=== PATIENT | female | born 1965 | race African-American/Black ===

== ENCOUNTER 2020-02-29 08:31 | Emergency (ER) | payer BC ==
[~2020-02-29] VITALS: Ht 160 cm; Wt 70.3 kg
--- NOTE | 2020-02-29 08:51 | NUR ---
ED Nurse Note: Pt has glaucoma and has had increasing L eye pain 6/10 and L forehead pain for past 3 days. Pt is alert and ox4, ambulatory. Pt states she has stuffy nose and postnasal drip.
[2020-02-29 08:53] VITALS: BP 127/78
[2020-02-29] MEDS ORDERED: Tetracaine 0.5% Opth 4ml Soln BOTH EYES ONE (09:00)
--- NOTE | 2020-02-29 09:13 | Emergency Room Report ---
History of Present Illness General Chief Complaint: Eye Problems Source: Patient Present Illness HPI Patient presents with history of glaucoma and and now with a headache that has been intermittent. The BRUSH is on the left side of her head. She is also has sinus drainage. She started a new medication for her glaucoma a month ago that she believes may have been related to the headaches. She takes Alphagan and Xalatan. She is seeing an security operations center analyst and recently received his Pneumovax. She denies fevers but feels shaky and may have had some chills. The headaches are sharp in the restorationism area and do not radiate. She rates the pain in her head 4/ 10. She is used Claritin but it seems ineffective. She has postnasal drip that also causes discomfort in her throat and chest. She also complains about muscle stiffness in her shoulders. She complains about palpitations. These are intermittent. She denies exertional chest pain. She does have some tenderness and a bump in her sternomanubrial notch. The patient has thyroid disease. She says that her thyroid is slightly low. She takes levothyroxine. Patient also has atenolol and Ativan. She has a history of hypertension and also takes amlodipine. She states her mother has a history of a cerebral mass and is concerned about this. She denies having a CT scan of her head in the past. No vomiting, diarrhea, dysuria, abdominal pain, shortness of breath, joint pain , rashes, dizziness. Allergies: Coded Allergies: No Known Allergies (Unverified , 02/29/20) COVID-19 Screening Contact w/high risk pt: No Experienced COVID-19 symptoms?: No COVID-19 Testing performed FRAME REPAIRER: Yes COVID-19 Screening: Negative COVID-19 COVID-19 Testing Source: 2 months ago Patient History Social History: Denies: smoking, alcohol use, drug use Social History Narrative From home Reviewed Nursing Documentation: PMH: Agreed; PSxH: Agreed Review of Systems All Other Systems: negative except mentioned in HPI Physical Exam Vital Signs Date Time Temp Pulse Resp B/P (MAP) Pulse Ox O2 Delivery O2 Flow Rate FiO2 02/29/20 08:39 98.8 79 16 124/71 (88) 98 Room Air Sp02 EP Interpretation: reviewed, normal General Appearance: well appearing, no apparent distress, GCS 15 Head: normocephalic Eyes: bilateral eye normal inspection, bilateral eye PERRL, bilateral eye EOMI , bilateral eye other - Intraocular pressure right 13, left 17 ENT: hearing grossly normal, EOM grossly intact, normal pharynx, no angioedema , normal voice, uvula midline, moist mucus membranes, other - Left TM with slight amount of fluid right normal the fluid is clear. Neck: full range of motion, supple Respiratory: lungs clear, normal breath sounds, other Cardiovascular #1: regular rate, rhythm Cardiovascular #2: 2+ radial (R) Gastrointestinal: normal inspection, non tender, non-distended Musculoskeletal: back normal, normal range of motion, gait/station normal Neurologic: alert, motor strength/tone normal, avionics systems integration specialist III-XII nml as tested, DTRs symmetric, oriented x3, sensory intact, cerebellar normal, speech normal Psychiatric: anxious Skin: no rash, warm/dry Medical Decision Making Diagnostic Impression: Primary Impression: Head ache Qualified Codes: R51 - Headache Additional Impressions: Glaucoma Qualified Codes: H40.813 - Glaucoma with increased episcleral venous pressure , bilateral Allergies Qualified Codes: T78.40XA - Allergy, unspecified, initial encounter Anxiety ER Course Patient with a history of glaucoma that presents with left-sided headache and other somatic complaints. Differential includes elevated intraocular pressure, side effect of medications, tension headache, electrolyte imbalance, cardiac side effects of medications, abnormal thyroid function, anxiety amongst others. Complicated patient with multiple somatic complaints. Evaluation with EKG, CT the head and labs. Patient treated initially with Tylenol. She was initially reluctant to take Tylenol. No red flag symptoms or signs. CT ordered due to family history of cerebral mass. Intraocular pressure measured. EKG normal. Labs unremarkable aside from minimally minimally low free T3 with normal TSH. CT had normal. Patient still with headaches. Somewhat improved with Tylenol. Patient anxious about headache even in the face of negative findings. Discussed the need for patient follow-up with her security operations center analyst and eye doctor. Discussed treatment with chlorpheniramine. No medical emergency at this time. Patient stable for outpatient observation and treatment. After discharge patient call that pharmacies did not have chlorpheniramine. Recall again stating is [id number]. Recall again stating that it is contraindicated in glaucoma (this is only for narrow angle glaucoma which she does not have based on her medications that she is taking). She requested other medication. Discussed consideration for use of Nasonex. She initially was against this as she said steroids would affect her thyroid. She was reassured that this would not be the case with nasal spray. Advised to have pharmacist call us. Laboratory Tests Test 02/29/20 09:05 02/29/20 10:49 White Blood Count 3.9 K/UL (4.8-10.8) L Red Blood Count 5.19 M/UL (4.20-5.40) Hemoglobin 13.7 G/DL (12.0-16.0) Hematocrit 43.1 % (37.0-47.0) Mean Corpuscular Volume 83 FL (80-99) Mean Corpuscular Hemoglobin 26.4 PG (27.0-31.0) L Mean Corpuscular Hemoglobin Concent 31.8 G/DL (32.0-36.0) L Red Cell Distribution Width 12.4 % (11.6-14.8) Platelet Count 195 K/UL (150-450) Mean Platelet Volume 7.8 FL (6.5-10.1) Neutrophils (%) (Auto) 54.2 % (45.0-75.0) Lymphocytes (%) (Auto) 37.9 % (20.0-45.0) Monocytes (%) (Auto) 6.9 % (1.0-10.0) Eosinophils (%) (Auto) 0.2 % (0.0-3.0) Basophils (%) (Auto) 0.9 % (0.0-2.0) Prothrombin Time 10.2 SEC (9.30-11.50) Prothrombin Time INR 0.9 (0.9-1.1) Activated Partial Thromboplast Time 25 SEC (23-33) Sodium Level 142 MMOL/L (136-145) Potassium Level 4.0 MMOL/L (3.5-5.1) Chloride Level 105 MMOL/L (98-107) Carbon Dioxide Level 31 MMOL/L (21-32) Anion Gap 6 mmol/L (5-15) Blood Urea Nitrogen 7 mg/dL (7-18) Creatinine 1.1 MG/DL (0.55-1.30) Estimated Glomerular Filtration Rate > 60 mL/min (>60) Glucose Level 117 MG/DL (74-106) H Calcium Level 9.3 MG/DL (8.5-10.1) Magnesium Level 2.2 MG/DL (1.8-2.4) Total Bilirubin 0.2 MG/DL (0.2-1.0) Aspartate Amino Transferase (AST) 12 U/L (15-37) L Alanine Aminotransferase (ALT) 13 U/L (12-78) Alkaline Phosphatase 101 U/L (46-116) Total Creatine Kinase 97 U/L (26-308) Troponin I 0.000 ng/mL (0.000-0.056) C-Reactive Protein, Quantitative < 0.4 mg/dL (0.00-0.90) Pro-B-Type Natriuretic Peptide 38 pg/mL (0-125) Total Protein 8.1 G/DL (6.4-8.2) Albumin 3.9 G/DL (3.4-5.0) Globulin 4.2 g/dL Albumin/Globulin Ratio 0.9 (1.0-2.7) L Thyroid Stimulating Hormone (TSH) 0.705 uiU/mL (0.358-3.740) Free Thyroxine 0.99 NG/DL (0.76-1.46) Free Triiodothyronine 2.2 pg/mL (2.3-4.2) L Urine Color Pale yellow Urine Appearance Clear Urine pH 8 (4.5-8.0) Urine Specific [place] 1.015 (1.005-1.035) Urine Protein Negative (NEGATIVE) Urine Glucose (UA) Negative (NEGATIVE) Urine Ketones Negative (NEGATIVE) Urine Blood Negative (NEGATIVE) Urine Nitrite Negative (NEGATIVE) Urine Bilirubin Negative (NEGATIVE) Urine Urobilinogen Normal MG/DL (0.0-1.0) Urine Leukocyte Esterase Negative (NEGATIVE) Urine Opiates Screen Negative (NEGATIVE) Urine Barbiturates Screen Negative (NEGATIVE) Phencyclidine (PCP) Screen Negative (NEGATIVE) Urine Amphetamines Screen Negative (NEGATIVE) Urine Benzodiazepines Screen Negative (NEGATIVE) Urine Cocaine Screen Negative (NEGATIVE) Urine Marijuana (THC) Screen Negative (NEGATIVE) EKG Diagnostic Results Rate: normal Rhythm: NSR ST Segments: no acute changes Rhythm Strip Diag. Results EP Interpretation: yes Rhythm: NSR, no PVC's, no ectopy CT/MRI/US Diagnostic Results CT/MRI/US Diagnostic Results : Imaging Test Ordered: head Impression FINDINGS: No acute intracranial hemorrhage. No midline shift or mass effect. The territorial chahal-white matter differentiation is maintained throughout. The ventricles and sulci are commensurate for age. The visualized orbits appear grossly unremarkable. The calvarium is intact. Nonspecific soft tissue calcifications superficial to the bilateral zygomatic arches. Correlate for history of cosmetic procedure. The visualized paranasal sinuses and mastoid air cells are grossly clear. IMPRESSION: No acute intracranial hemorrhage, midline shift, or mass effect. Last Vital Signs Date Time Temp Pulse Resp B/P (MAP) Pulse Ox O2 Delivery O2 Flow Rate FiO2 02/29/20 12:06 98.8 72 17 125/76 100 Room Air Status: improved Disposition: HOME, SELF-CARE Condition: Improved Scripts Acetaminophen (Tylenol) 325 Mg Tablet 650 MG ORAL Q6H PRN for Prn Pain/Headache/Temp > 101, #20 TAB 0 Refills Prov: Andrez Mcfarlane MD 02/29/20 Chlorpheniramine Maleate (CHLOR-TRIMETON) 4 Mg Tablet 4 MG PO Q6HR PRN for sinus drainage, #14 TAB Prov: Andrez Mcfarlane MD 02/29/20 Referrals: [facility],REFERRING (PCP) Andrez Mcfarlane MD Feb 29, 2020 09:13
[2020-02-29 09:54] LABS: BASOPHILS % (AUTO) 0.9 % (0.0-2.0); EOSINOPHILS % (AUTO) 0.2 % (0.0-3.0); HEMATOCRIT 43.1 % (37.0-47.0); HEMOGLOBIN 13.7 G/DL (12.0-16.0); LYMPHOCYTES % (AUTO) 37.9 % (20.0-45.0); MEAN CORPUSCULAR VOLUME 83 FL (80-99); MONOCYTES % (AUTO) 6.9 % (1.0-10.0); NEUTROPHILS % (AUTO) 54.2 % (45.0-75.0); PLATELET COUNT 195 K/UL (150-450); RED BLOOD COUNT 5.19 M/UL (4.20-5.40); RED CELL DISTRIBUTION WIDTH 12.4 % (11.6-14.8); WHITE BLOOD COUNT 3.9 K/UL (4.8-10.8)
--- NOTE | 2020-02-29 10:00 | Diagnostic Imaging Report ---
EXAM: CT Head Without Intravenous Contrast CLINICAL HISTORY: H/A TECHNIQUE: Axial computed tomography images of the head/brain without intravenous contrast. CTDI is 53.4 mGy and DLP is 1018.8 mGy-cm. One or more of the following dose reduction techniques were used: automated exposure control, adjustment of the mA and/or kV according to patient size, use of iterative reconstruction technique. COMPARISON: No relevant prior studies available. FINDINGS: No acute intracranial hemorrhage. No midline shift or mass effect. The territorial chahal-white matter differentiation is maintained throughout. The ventricles and sulci are commensurate for age. The visualized orbits appear grossly unremarkable. The calvarium is intact. Nonspecific soft tissue calcifications superficial to the bilateral zygomatic arches. Correlate for history of cosmetic procedure. The visualized paranasal sinuses and mastoid air cells are grossly clear. IMPRESSION: No acute intracranial hemorrhage, midline shift, or mass effect.
[2020-02-29 10:06] LABS: INR 0.9 (0.9-1.1)
[2020-02-29 10:11] LABS: ANION GAP 6 mmol/L (5-15); BLOOD UREA NITROGEN 7 mg/dL (7-18); CALCIUM 9.3 MG/DL (8.5-10.1); CARBON DIOXIDE 31 MMOL/L (21-32); CHLORIDE 105 MMOL/L (98-107); CREATININE 1.1 MG/DL (0.55-1.30); SODIUM 142 MMOL/L (136-145)
[2020-02-29 10:21] LABS: ALANINE AMINOTRANSFERASE 13 U/L (12-78); ALBUMIN 3.9 G/DL (3.4-5.0); ALBUMIN/GLOBULIN RATIO 0.9 (1.0-2.7); ALKALINE PHOSPHATASE 101 U/L (46-116); ASPARTATE AMINO TRANSFERASE 12 U/L (15-37); BILIRUBIN,TOTAL 0.2 MG/DL (0.2-1.0); CREATINE KINASE 97 U/L (26-308)
[2020-02-29 11:00] VITALS: BP 120/72
[2020-02-29 11:03] LABS: APPEARANCE,URINE CLEAR; BILIRUBIN, URINE NEGATIVE (NEGATIVE); COLOR,URINE PALE YELLOW; GLUCOSE, URINE (UA) NEGATIVE (NEGATIVE); KETONES,URINE NEGATIVE (NEGATIVE); LEUKOCYTE ESTERASE ,URINE NEGATIVE (NEGATIVE); NITRITE,URINE NEGATIVE (NEGATIVE); PH,URINE 8 (4.5-8.0); PROTEIN,URINE NEGATIVE (NEGATIVE); UROBILINOGEN,URINE NORMAL MG/DL (0.0-1.0)
[2020-02-29] MEDS ORDERED: CHLOR-TRIMETON4 MG PO (11:57)
[2020-02-29] MEDS ORDERED: TYLENOL325 MG ORAL (11:57)
[2020-02-29 12:06] VITALS: BP 125/76
--- NOTE | 2020-02-29 12:07 | NUR ---
ER DISCHARGE NOTE: Patient is cleared to be discharged per ERMD, pt is aox4, on room air, with stable vital signs. pt was given dc and prescription instructions, pt was able to verbalize understanding, pt id band and iv site removed without complications. pt is able to ambulate with steady gait. pt took all belongings. Pt educated regarding sinuses, f/u appt.
[2020-02-29] MEDS ORDERED: XALATAN2.5 ML BOTH EYES (12:08)
[2020-02-29] MEDS ORDERED: SYNTHROID25 MCG ORAL (12:08)
[2020-02-29] MEDS ORDERED: AMLODIPINE BESY10 MG ORAL (12:08)
[2020-02-29] MEDS ORDERED: ATENOLOL25 MG ORAL (12:08)
[2020-02-29] MEDS ORDERED: BRIMONIDINE TART5 ML LEFT EYE (12:08)
[2020-02-29] MEDS ORDERED: ATIVAN2 MG ORAL (12:08)
== END 2020-02-29 12:09 | disposition home or self-care (01) ==
LOC: EMR 09:04
DX: R51 Headache (principal); H40.813 Glaucoma with increased episcleral venous pressure, bilateral; T78.40XA Allergy, unspecified, initial encounter; F41.9 Anxiety disorder, unspecified; E07.9 Disorder of thyroid, unspecified; I10 Essential (primary) hypertension; Z79.899 Other long term (current) drug therapy; M25.612 Stiffness of left shoulder, not elsewhere classified; M25.611 Stiffness of right shoulder, not elsewhere classified
CPT/HCPCS: 36415; 70450; 80053; 80307; 81003; 82550; 83735; 83880; 84439; 84443; 84481; 84484; 85025; 85610; 85730; 86140; 93005; 99284

== ENCOUNTER 2020-05-29 08:57 | Emergency (ER) | payer BC ==
[~2020-05-29] VITALS: Ht 160 cm; Wt 72.6 kg
[~2020-05-29 08:57] MED LIST: AMLODIPINE BESY10 MG ORAL; ATENOLOL25 MG ORAL; ATIVAN2 MG ORAL; BRIMONIDINE TART5 ML LEFT EYE; CHLOR-TRIMETON4 MG PO; NAPROXEN500 M2 ORAL; SYNTHROID25 MCG ORAL; TYLENOL325 MG ORAL; XALATAN2.5 ML BOTH EYES
[2020-05-29 09:30] VITALS: BP 132/89
--- NOTE | 2020-05-29 09:43 | Emergency Room Report ---
History of Present Illness General Chief Complaint: Upper Respiratory Illness Source: Patient Present Illness HPI The patient presents saying that she produced some spit and saliva that had some blood streaks in it. There is a small quantity. She believes she did not cough this out and it was not vomited. She denies any ongoing bleeding that she knows about at this time. She does feel nasal congestion. She also has worsened feelings of epigastric and chest discomfort in the mornings. Her physicians had prescribed Protonix. She recently was switched to Nexium but has not filled this prescription. Recently she saw an welder assistant. Apparently she was positive for several allergies but ultimately the welder assistant told her that she is not allergic to anything and felt that the problem that she had was GERD. He recommended that she see an survey researcher. She recently underwent a CT scan which revealed no sinusitis or intracranial pathology. She does take Claritin but feels its not effective at this time. She is taking it for some long period of time. Other antihistamines she feels may be contraindicated as they may increase intraocular pressure and she has glaucoma. The last time I evaluated her this was her main concern that she had increased intraocular pressure. It was measured and was normal at that time. Please refer to the note February 28. She states she cannot take decongestants because they cause palpitations and supraventricular tachycardia. She says that oral steroids also have a similar effect. The patient denies exposure to COVID-19 positive contacts. No fevers, chills, nausea, vomiting, diarrhea, dysuria, abdominal pain, shortn ess of breath, joint pain, rashes, depression, anxiety, dizziness, headache. 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, marketing administrative assistant Last Menstrual Period: na Now: No Reviewed Nursing Documentation: PMH: Agreed; PSxH: Agreed Nursing Documentation-PMH Past Medical History: No History, Except For Hx Gastrointestinal Problems: Yes - GERD Review of Systems All Other Systems: negative except mentioned in HPI Physical Exam Vital Signs Date Time Temp Pulse Resp B/P (MAP) Pulse Ox O2 Delivery O2 Flow Rate FiO2 05/29/20 09:03 98.2 72 18 135/90 (105) 97 Room Air 05/29/20 09:30 98 Sp02 EP Interpretation: reviewed, normal General Appearance: well appearing, no apparent distress, GCS 15, non-toxic Head: normocephalic Eyes: bilateral eye PERRL, bilateral eye other - Turbidity bilateral eyes with normal pupil size slightly worse on the left ENT: normal pharynx, no angioedema, TMs + canals normal, moist mucus membranes, other - Inflamed nares bilaterally with clear mucoid discharge worse on left Neck: full range of motion, supple Respiratory: lungs clear, normal breath sounds Cardiovascular #1: regular rate, rhythm Cardiovascular #2: 2+ radial (R) Gastrointestinal: normal inspection, tenderness - Reported epigastric Musculoskeletal: gait/station normal Neurologic: alert, sensory intact, grossly normal Psychiatric: mood/affect normal Skin: normal color, warm/dry Medical Decision Making Diagnostic Impression: Primary Impression: Post-nasal drip Additional Impressions: GERD (gastroesophageal reflux disease) Qualified Codes: K21.00 - Gastro-esophageal reflux disease with esophagitis, without bleeding Glaucoma Qualified Codes: H40.9 - Unspecified glaucoma ER Course Patient presents with blood in her saliva. Differential includes sinusitis, bleeding gums, epistaxis, gastritis with bloody phlegm amongst others. Based on the lack of headache or visual changes measuring of intraocular pressures not needed. Based on the history, symptom complex and physical exam postnasal drip with allergic-based sinusitis and GERD highly suspected. Because of the history of glaucoma it is difficult to determine what the optimal treatment might be. In the past she has been against taking antihistamines because of the possible effect on her eyes and glaucoma. Discussed in detail the elements in her physical exam and history which lead to the suggestion of postnasal drip and GERD. Discussed antihistamine (Claritin) tolerance and alternative treatments. Patient was advised to follow-up with her bridge operator to ensure that whatever treatment she embarks on his acceptable to the bridge operator. In addition is recommended that she receive the consultation with survey researcher. There is no evidence of Covid disease at this time. No apparent emergency at this time. Patient is stable for outpatient observation and treatment. Last Vital Signs Date Time Temp Pulse Resp B/P (MAP) Pulse Ox O2 Delivery O2 Flow Rate FiO2 05/29/20 09:56 98.2 78 19 135/87 100 Room Air 05/29/20 09:30 98 Status: unchanged Disposition: HOME, SELF-CARE Condition: Stable Scripts Mag Hydrox/Aluminum Hyd/Simeth (Mylanta Maximum Strength Liq) 355 Ml Oral.susp 30 ML PO Q6HR PRN for gerd, #240 ML Prov: Andrez Mcfarlane MD 05/29/20 Referrals: [facility],REFERRING (PCP) Andrez Mcfarlane MD May 29, 2020 09:42
[2020-05-29] MEDS ORDERED: MYLANTA MAXIMU355 ML PO (09:46)
[2020-05-29 09:56] VITALS: BP 135/87
== END 2020-05-29 09:57 | disposition home or self-care (01) ==
LOC: EMR 09:25
DX: R09.82 Postnasal drip (principal); K21.00 Gastro-esophageal reflux disease with esophagitis, without bleeding; H40.9 Unspecified glaucoma
CPT/HCPCS: 99282

== ENCOUNTER 2020-07-21 09:01 | Emergency (ER) | payer BC ==
[~2020-07-21] VITALS: Ht 160 cm; Wt 74.8 kg
[~2020-07-21 09:01] MED LIST changes: +MYLANTA MAXIMU355 ML PO
[2020-07-21] MEDS ORDERED: LUMIGAN2.5 ML BOTH EYES (09:14)
[2020-07-21 09:17] VITALS: BP 121/75
--- NOTE | 2020-07-21 09:19 | NUR ---
ED Nurse Note:pt. came from home with c/o epigastric pain and left leg pain for 1 week, pt. is A/Ox4 ambulatory with steady gait
[2020-07-21] MEDS ORDERED: Mylanta II UD 30ml ORAL ONE (09:45)
[2020-07-21] MEDS ORDERED: Lidocaine 2% Visc 15ml soln ORAL ONE (09:45)
[2020-07-21] MEDS ORDERED: Dicyclomine HCl 10mg/5ml oral soln ORAL ONE (09:45)
[2020-07-21 10:06] LABS: APPEARANCE,URINE SLIGHTLY CLOUDY; BASOPHILS % (AUTO) 1.4 % (0.0-2.0); BILIRUBIN, URINE 1+ (NEGATIVE); EOSINOPHILS % (AUTO) 0.1 % (0.0-3.0); GLUCOSE, URINE (UA) NEGATIVE (NEGATIVE); HEMATOCRIT 45.7 % (37.0-47.0); HEMOGLOBIN 13.7 G/DL (12.0-16.0); KETONES,URINE 1+ (NEGATIVE); LEUKOCYTE ESTERASE ,URINE 2+ (NEGATIVE); LYMPHOCYTES % (AUTO) 36.7 % (20.0-45.0); MEAN CORPUSCULAR VOLUME 85 FL (80-99); MONOCYTES % (AUTO) 6.4 % (1.0-10.0); NEUTROPHILS % (AUTO) 55.4 % (45.0-75.0); NITRITE,URINE NEGATIVE (NEGATIVE); PH,URINE 6 (4.5-8.0); PLATELET COUNT 198 K/UL (150-450); PROTEIN,URINE 2+ (NEGATIVE); RED BLOOD COUNT 5.36 M/UL (4.20-5.40); RED CELL DISTRIBUTION WIDTH 13.1 % (11.6-14.8); UROBILINOGEN,URINE 1 MG/DL (0.0-1.0)
--- NOTE | 2020-07-21 10:07 | Emergency Room Report ---
History of Present Illness General Chief Complaint: Pain Source: Patient Present Illness HPI 55-year-old female with history of anxiety here with multiple complaints including epigastric pain and atraumatic left lower extremity pain. Patient says that she went to go see a food service kitchen supervisor for her chronic epigastric pain yesterday. Patient was told that she needed to have an endoscopy performed. Patient did not make a follow-up appointment. Says that she used to take an antacid but no longer takes it. Says she feels sharp epigastric pain radiating to her chest and throat. Also complaining of intermittent left lower extremity pain on the medial aspect of her left knee. No trauma. Patient says "it feels like something is crawling in there under the skin." Denies fevers, chills, chest pain, palpitations, shortness of breath, cough, back pain, nausea, vomiting, diarrhea, dysuria, leg swelling, long car rides or plane rides, IV drug use, smoking, history of blood clots. Allergies: Coded Allergies: No Known Allergies (Unverified , 02/29/20) COVID-19 Screening Contact w/high risk pt: No Experienced COVID-19 symptoms?: No COVID-19 Testing performed BOILER INSPECTOR: No Patient History Now: No Nursing Documentation-[facility] Past Medical History: No History, Except For Hx Gastrointestinal Problems: Yes - GERD Review of Systems All Other Systems: negative except mentioned in HPI Physical Exam Vital Signs Date Time Temp Pulse Resp B/P (MAP) Pulse Ox O2 Delivery O2 Flow Rate FiO2 07/21/20 09:04 79 17 121/75 (90) 98 Room Air Sp02 EP Interpretation: reviewed, normal General Appearance: no apparent distress, alert, non-toxic Head: normocephalic, atraumatic Eyes: bilateral eye normal inspection, bilateral eye PERRL ENT: hearing grossly normal, normal pharynx, no angioedema, normal voice Neck: full range of motion, supple/symm/no masses Respiratory: chest non-tender, lungs clear, normal breath sounds, speaking full sentences Cardiovascular #1: regular rate, rhythm, no edema Cardiovascular #2: 2+ carotid (R), 2+ carotid (L), 2+ radial (R), 2+ radial (L), 2+ dorsalis pedis (R), 2+ dorsalis pedis (L) Gastrointestinal: normal bowel sounds, non tender, soft, non-distended, no guarding, no rebound Rectal: deferred Genitourinary: normal inspection, no CVA tenderness Musculoskeletal: back normal, normal range of motion, gait/station normal, non- tender Neurologic: alert, motor strength/tone normal, oriented x3, sensory intact, responsive, speech normal Psychiatric: judgement/insight normal, memory normal, mood/affect normal, no suicidal/homicidal ideation Lymphatic: no adenopathy Medical Decision Making Diagnostic Impression: Primary Impression: GERD (gastroesophageal reflux disease) Additional Impressions: Anxiety UTI (urinary tract infection) ER Course Laboratory Tests Test 07/21/20 09:45 White Blood Count 4.0 K/UL (4.8-10.8) L Red Blood Count 5.36 M/UL (4.20-5.40) Hemoglobin 13.7 G/DL (12.0-16.0) Hematocrit 45.7 % (37.0-47.0) Mean Corpuscular Volume 85 FL (80-99) Mean Corpuscular Hemoglobin 25.6 PG (27.0-31.0) L Mean Corpuscular Hemoglobin Concent 30.0 G/DL (32.0-36.0) L Red Cell Distribution Width 13.1 % (11.6-14.8) Platelet Count 198 K/UL (150-450) Mean Platelet Volume 9.4 FL (6.5-10.1) Neutrophils (%) (Auto) 55.4 % (45.0-75.0) Lymphocytes (%) (Auto) 36.7 % (20.0-45.0) Monocytes (%) (Auto) 6.4 % (1.0-10.0) Eosinophils (%) (Auto) 0.1 % (0.0-3.0) Basophils (%) (Auto) 1.4 % (0.0-2.0) Urine Color Yellow Urine Appearance Slightly cloudy Urine pH 6 (4.5-8.0) Urine Specific [place] 1.020 (1.005-1.035) Urine Protein 2+ (NEGATIVE) H Urine Glucose (UA) Negative (NEGATIVE) Urine Ketones 1+ (NEGATIVE) H Urine Blood 1+ (NEGATIVE) H Urine Nitrite Negative (NEGATIVE) Urine Bilirubin 1+ (NEGATIVE) H Urine Ictotest Negative (NEGATIVE) Urine Urobilinogen 1 MG/DL (0.0-1.0) H Urine Leukocyte Esterase 2+ (NEGATIVE) H Urine RBC 0-2 /HPF (0 - 2) Urine WBC 5-10 /HPF (0 - 2) H Urine Squamous Epithelial Cells Few /LPF (NONE/OCC) Urine Bacteria Few /HPF (NONE) Urine Mucus Few /LPF (NONE/OCC) H Sodium Level 141 MMOL/L (136-145) Potassium Level 3.9 MMOL/L (3.5-5.1) Chloride Level 106 MMOL/L (98-107) Carbon Dioxide Level 32 MMOL/L (21-32) Anion Gap 3 mmol/L (5-15) L Blood Urea Nitrogen 11 mg/dL (7-18) Creatinine 1.0 MG/DL (0.55-1.30) Estimated Glomerular Filtration Rate > 60 mL/min (>60) Glucose Level 108 MG/DL (74-106) H Calcium Level 9.4 MG/DL (8.5-10.1) Total Bilirubin 0.2 MG/DL (0.2-1.0) Aspartate Amino Transferase (AST) 18 U/L (15-37) Alanine Aminotransferase (ALT) 19 U/L (12-78) Alkaline Phosphatase 109 U/L (46-116) Troponin I 0.000 ng/mL (0.000-0.056) Pro-B-Type Natriuretic Peptide 34 pg/mL (0-125) Total Protein 8.1 G/DL (6.4-8.2) Albumin 3.8 G/DL (3.4-5.0) Globulin 4.3 g/dL Albumin/Globulin Ratio 0.9 (1.0-2.7) L Lipase 329 U/L (73-393) EKG: NSR, no ischemia, intervals WNL. No ectopy. rate 71 bpm Rhythm strip: patient monitored for arrhythmias - no malignant dysrhythmias, runs of PVCs, nor pauses noted CXR: No infiltrate/effusion. Mediastinum within normal limits. No consolidations. No free air under the diaphragm. No bony abnormalities 55-year-old female with a history of gastritis here with epigastric abdominal pain and left lower extremity pain. Ultrasound of the left lower extremity was negative for DVT or any other acute abnormalities. Patient said that she was pain-free in the emergency department. She had normal physical examination. She was given a GI cocktail with good resolution of her epigastric abdominal pain. CBC, CMP, troponin all unremarkable. EKG normal. Patient has a follow- up appoint with her food service kitchen supervisor. No acute abnormalities at this time. Patient was told to continue her Pepcid. She was found of urinary tract infection and given a prescription for Keflex. Told to return with any worsening symptoms. Discharged in stable condition. Last Vital Signs Date Time Temp Pulse Resp B/P (MAP) Pulse Ox O2 Delivery O2 Flow Rate FiO2 07/21/20 09:17 80 17 121/75 98 Room Air Scripts Famotidine* (Pepcid 20mg tablet*) 20 Mg Tablet 20 MG ORAL DAILY for Gerd, #30 TAB 0 Refills Prov: Jett Ridley M.D. 07/21/20 Cephalexin* (KEFLEX*) 500 Mg Capsule 500 MG ORAL EVERY 12 HOURS, #14 CAP 0 Refills Prov: Jett Ridley M.D. 07/21/20 Referrals: [facility],REFERRING (PCP) Jett Ridley M.D. Jul 21, 2020 10:07
[2020-07-21 10:08] LABS: COLOR,URINE YELLOW
[2020-07-21] MEDS ORDERED: CEPHALEXIN500 MG ORAL (10:13)
[2020-07-21 10:19] LABS: ANION GAP 3 mmol/L (5-15); BLOOD UREA NITROGEN 11 mg/dL (7-18); CALCIUM 9.4 MG/DL (8.5-10.1); CARBON DIOXIDE 32 MMOL/L (21-32); CHLORIDE 106 MMOL/L (98-107); POTASSIUM 3.9 MMOL/L (3.5-5.1); SODIUM 141 MMOL/L (136-145)
[2020-07-21 10:31] LABS: ALANINE AMINOTRANSFERASE 19 U/L (12-78); ALBUMIN 3.8 G/DL (3.4-5.0); ALBUMIN/GLOBULIN RATIO 0.9 (1.0-2.7); ALKALINE PHOSPHATASE 109 U/L (46-116); ASPARTATE AMINO TRANSFERASE 18 U/L (15-37); BILIRUBIN,TOTAL 0.2 MG/DL (0.2-1.0)
--- NOTE | 2020-07-21 10:40 | Diagnostic Imaging Report ---
Indication: Chest pain Technique: XRAY Chest 1v Comparison: 03/08/2020 Findings: Heart size and mediastinal contours are within normal limits for AP technique. There is no focal airspace consolidation, pneumothorax or pleural effusion. Osseous structures demonstrate no acute abnormality. Impression: No radiographic evidence of acute cardiopulmonary disease.
[2020-07-21] MEDS ORDERED: FAMOTIDINE20 MG ORAL (11:02)
[2020-07-21 11:11] VITALS: BP 125/76
[2020-07-21 11:12] VITALS: BP 125/76
--- NOTE | 2020-07-21 11:13 | NUR ---
ER DISCHARGE NOTE: Patient is cleared to be discharged per ERMD, pt is aox4, on room air, with stable vital signs. pt was given dc and prescription instructions, pt was able to verbalize understanding, pt id band and iv site removed without complications. pt is able to ambulate with steady gait. pt took all belongings.
--- NOTE | 2020-07-21 12:25 | Diagnostic Imaging Report ---
Indication: Left leg pain and swelling Technique: Grayscale and duplex Doppler imaging of the veins in the left lower extremity performed in real time utilizing compression and augmentation. Comparison: None Findings: Duplex Doppler interrogation of the veins in the left lower extremity is performed from the common femoral vein to the popliteal vein. Normal venous compressibility demonstrated throughout. No thrombus identified. Waveform analysis shows good respiratory phasicity and augmentation. Imaged portions of the left greater saphenous vein are also patent and compressible. Imaged left calf veins are patent. Comparison images of the right common femoral vein demonstrated it to be patent and compressible. IMPRESSION: No evidence of deep venous thrombosis involving the left lower extremity.
== END 2020-07-21 11:15 | disposition home or self-care (01) ==
LOC: EMR 09:48
DX: K21.9 Gastro-esophageal reflux disease without esophagitis (principal); F41.9 Anxiety disorder, unspecified; N39.0 Urinary tract infection, site not specified
CPT/HCPCS: 36415; 71045; 80053; 81003; 83690; 83880; 84484; 85025; 93005; 93971; 99284